=== PATIENT | female | born 1985 | race Caucasian/White ===

== ENCOUNTER 2020-04-16 16:22 | Emergency (ER) | payer OTHER, SELFPAY ==
--- NOTE | 2020-04-16 16:28 | ED.GENADULT ---
HPI - General Adult General Chief complaint: Urogenital-Female Stated complaint: frequent urination/tingle at end of urination Time Seen by Provider: 04/16/20 16:45 Source: patient Mode of arrival: ambulatory Limitations: no limitations History of Present Illness HPI narrative: 34-year-old female patient presents to the [facility] with complaints of urinary symptoms with pain with urination for the past 2 days. Denies any fevers, body aches or chills. Denies any low back pain. Patient states she has had some lower abdominal cramping but states she is supposed to be starting her menstrual cycle. Patient denies any nausea vomiting or diarrhea. Related Data Allergies Allergy/AdvReac Type Severity Reaction Status Date / Time Penicillins Allergy Unknown HIVES Verified 04/16/20 16:44 Review of Systems Review of Systems: Narrative: CONSTITUTIONAL: Denies fever, chills, or sweats. EYES: Denies visual changes, redness, or discharge. ENT: Denies rhinorrhea, congestion, sore throat, or otalgia. CARDIOVASCULAR: Denies chest pain, palpitations, or edema. RESPIRATORY: Denies cough or dyspnea. GASTROINTESTINAL: Denies abdominal pain, nausea, vomiting, or diarrhea. GENITOURINARY: Denies dysuria or hematuria. Positive pain with urination x2 days SKIN: Denies rash or itching. MUSCULOSKELETAL: Denies back pain, joint pain, or myalgia. NEUROLOGIC: Denies headache, numbness, or weakness. PSYCHIATRIC: Denies anxiety or depression. PMFSH Comments At the time of my signature I agree with nursing past medical history, surgical, social, and family history. There is no relevant family history pertinent to the presenting complaint. Exam Narrative: Exam Narrative: GENERAL: Well-appearing, well-nourished, and in no acute distress. HEAD: Normocephalic, atraumatic. EYES: PERRLA and EOMI. ENT: Nares clear, no rhinorrhea or epistaxis. Mucous membranes moist. NECK: Supple. No lymphadenopathy CHEST: Clear to auscultation. No respiratory distress. HEART: Regular rate and rhythm. No murmur heard. Normal peripheral pulses. ABDOMEN: Soft, nontender, nondistended, normal active bowel sounds. No CVA tenderness on percussion EXTREMITIES: Normal range of motion. No edema. SKIN: Warm, dry, no rash. NEURO: No focal deficits. Alert and oriented x3. Course Vital Signs Vital signs: Vital Signs Temperature 37.4 C 04/16/20 16:32 Pulse Rate 97 04/16/20 16:32 Respiratory Rate 18 04/16/20 16:32 Blood Pressure 132/86 04/16/20 16:32 Pulse Oximetry 98 04/16/20 16:32 Temperature 37.4 C 04/16/20 16:32 Pulse Rate 97 04/16/20 16:32 Respiratory Rate 18 04/16/20 16:32 Blood Pressure 132/86 04/16/20 16:32 Pulse Oximetry 98 04/16/20 16:32 Vital signs reviewed The patient has been informed that they may have pre-hypertension or Hypertension based on a BP reading in the department. I recommend that the patient call the primary care provider listed on their discharge instructions or a physician of their choice this week to arrange follow up for further evaluation of possible pre-hypertension or Hypertension Medical Decision Making Differential Diagnosis Differential Diagnosis: Differential diagnosis: Uncomplicated lower UTI, uncomplicated UTI, pyelonephritis Cussed with patient that she does have some leukocytes noted on her urine dip. Discussed with her that since she is having symptoms we will go ahead and start her on some antibiotics and send her urine off for a culture. Discussed with her that if her culture comes back needing a different type of antibiotics she will get a phone call from us. Discussed with her that if she does not hear anything just to continue taking the antibiotics until they have been completed. Patient verbalized understanding denies any other questions or concerns at this time. Vital Signs Vital Signs: Vital Signs Temperature 37.4 C 04/16/20 16:32 Pulse Rate 97 04/16/20 16:32 Respiratory Rate 18 04/03
[2020-04-16 16:32] VITALS: BP 132/86; PULSE 97; RESP 18; TEMP 37.4; O2SAT 98
== END 2020-04-16 16:51 | disposition home or self-care (01) ==
PROVIDERS: Emergency Provider Nurse Practitioner Family; PCP Physician Assistant
DX: N30.00 Acute cystitis without hematuria (principal)
CPT/HCPCS: 81003; 87077; 87086; 87088; 99213; G0463

== ENCOUNTER 2020-08-28 09:09 | Emergency (ER) | payer OTHER, SELFPAY ==
[2020-08-28 09:14] VITALS: BP 124/71; PULSE 81; RESP 16; TEMP 36.7; O2SAT 98
--- NOTE | 2020-08-28 09:19 | ED.FEMALEGU ---
HPI - Female Genitourinary General Chief complaint: Urogenital-Female Stated complaint: Poss UTI Time Seen by Provider: 08/28/20 09:19 Source: patient and RN notes reviewed Mode of arrival: ambulatory Limitations: no limitations History of Present Illness HPI Narrative: 35-year-old female presents to [facility] stating I think I have a UTI. Symptoms for 3 days. States that she is having the same symptoms with the umbilical abdominal discomfort 2 days ago. No pain currently. Has had urgency, no frequency but states that she feels like she is going less often. Denies nausea or vomiting or diarrhea. Has been taking Azo and states she has not had any discomfort with urination. States that she has a normal vaginal discharge. No CVA tenderness. Related Data Home Medications Medication Instructions Recorded Confirmed escitalopram oxalate [Lexapro] 20 mg PO DAILY 08/28/20 08/28/20 levonorgestrel [Mirena] 1 device INTRAUTERINE ONCE 08/28/20 08/28/20 Allergies Allergy/AdvReac Type Severity Reaction Status Date / Time Penicillins Allergy Unknown HIVES Verified 08/28/20 09:20 Review of Systems Review of Systems: Narrative: CONSTITUTIONAL: Denies fever, chills, or sweats. EYES: Denies visual changes, redness, or discharge. ENT: Denies rhinorrhea, congestion, sore throat, or otalgia. CARDIOVASCULAR: Denies chest pain, palpitations, or edema. RESPIRATORY: Denies cough or dyspnea. GASTROINTESTINAL: Denies abdominal pain, nausea, vomiting, or diarrhea. GENITOURINARY: Reports urgency and suprapubic discomfort SKIN: Denies rash or itching. MUSCULOSKELETAL: Denies back pain, joint pain, or myalgia. NEUROLOGIC: Denies headache, numbness, or weakness. PSYCHIATRIC: Denies anxiety or depression. All other systems reviewed are negative, except as documented in HPI. PMFSH Comments At the time of my signature, I reviewed and agree with the nursing past medical, surgical, social, and family history. There is no relevant family history pertinent to the patient complaint. Exam Narrative: Exam Narrative: GENERAL: This is a well-nourished, well-developed patient, in no apparent distress. HEAD: normocephalic, atraumatic. EYES: PERRL. Sclera clear/white. Vision is grossly intact. EARS: External ears normal. NECK: Neck supple, non-tender without lymphadenopathy, masses or thyromegaly. CARDIOVASCULAR: Regular rate and rhythm without murmurs, gallops, or rubs. RESPIRATORY: Clear to auscultation. Breath sounds equal bilaterally. No wheezes, rales, or rhonchi. GASTROINTESTINAL: Abdomen soft, non-tender, nondistended. SKIN: warm, intact with no suspicious lesions or rash, good texture and turgor. NEURO: awake, alert, and oriented to person, place and time. There were no obvious focal neurologic abnormalities. EXTREMITIES: No clubbing, cyanosis, or edema. No joint tenderness, effusion, or edema noted. No calf tenderness. Negative Homans sign bilaterally. BACK: Nontender without deformity. no CVA tenderness Course Vital Signs Vital signs: Vital Signs Temperature 98.1 F 08/28/20 09:14 Pulse Rate 81 08/28/20 09:14 Respiratory Rate 16 08/28/20 09:14 Blood Pressure 124/71 08/28/20 09:14 Pulse Oximetry 98 08/28/20 09:14 Temperature 98.1 F 08/28/20 09:14 Pulse Rate 81 08/28/20 09:14 Respiratory Rate 16 08/28/20 09:14 Blood Pressure 124/71 08/28/20 09:14 Pulse Oximetry 98 08/28/20 09:14 Reviewed, within defined limits MDM - Female Genitourinary MDM Narrative Medical decision making narrative: Plan of care and discharge instructions reviewed with patient, as well as provided in writing per nursing staff. The instructions also include specific and strict return/GO TO THE ER as well as f/u information. All questions have been answered, and the patient deny any further questions with discharge and discharge plan. Differential Diagnosis Differential diagnosis: Likely urinary tract infection, bacterial vaginosis and v
== END 2020-08-28 09:52 | disposition home or self-care (01) ==
PROVIDERS: Emergency Provider Nurse Practitioner; PCP Physician Assistant
DX: N30.01 Acute cystitis with hematuria (principal); F41.9 Anxiety disorder, unspecified
CPT/HCPCS: 81003; 87086; 99213; G0463

== ENCOUNTER 2023-08-12 15:28 | Emergency (ER) | payer OTHER, SELFPAY ==
[2023-08-12 15:36] VITALS: BP 105/55; PULSE 98; RESP 16; TEMP 37.2; O2SAT 98
[2023-08-12 15:38] VITALS: BP 105/55; PULSE 98; RESP 16; TEMP 37.2; O2SAT 98
--- NOTE | 2023-08-12 16:24 | ED.GENADULT ---
HPI - General Adult General Chief complaint: Dental/Oral Stated complaint: Sore Throat Source: patient Mode of arrival: ambulatory History of Present Illness HPI narrative: 38-year-old female presented for c/o sores in mouth for the past few days, on chemotherapy for breast cancer. Reports soreness to the tongue and top of mouth. States she had the sores the last round of chemo but the resolved on their own quickly. Denies sores or bleeding to the gums. Related Data Home Medications Medication Instructions Recorded Confirmed escitalopram oxalate 20 mg tablet 20 mg PO DAILY 08/28/20 08/28/20 (Lexapro) levonorgestrel 21 mcg/24 hours (8 1 device intrauterine ONCE 08/28/20 08/28/20 yrs) 52 mg intrauterine device (Mirena) famotidine 20 mg tablet mg 08/12/23 ondansetron HCl 8 mg tablet mg 08/12/23 prochlorperazine maleate 10 mg mg 08/12/23 tablet valacyclovir 1 gram tablet mg 08/12/23 Allergies Allergy/AdvReac Type Severity Reaction Status Date / Time Penicillins Allergy Unknown HIVES Verified 08/28/20 09:20 Review of Systems Review of Systems: CONSTITUTIONAL: Denies body aches, fever, chills ENT: Denies rhinorrhea, congestion, sore throat, or otalgia. Reports mouth pain CARDIOVASCULAR: Denies chest pain, palpitations RESPIRATORY: Denies cough or dyspnea. SKIN: Denies rash, itching, or wounds. MUSCULOSKELETAL: Denies myalgia. NEUROLOGIC: Denies headache, numbness, tingling, or weakness. [facility] Social History Social History (Updated 08/12/23 @ 16:36 by Monica Avelar, [employer]) Smoking status: Current every day smoker Tobacco type: cigarettes Comments At time of signature, I have reviewed and agree with nursing past medical, surgical, social and family history unless otherwise noted. Please see nursing chart for further information. There is no relevant family history pertinent to the presenting complaint Exam Narrative: GENERAL: well appearing, no acute distress. EYES: EOMI. No redness or drainage. Conjunctivae normal. ENT: Scattered raised round papules approx 3mm diameter to tongue and soft palate; gums normal. Mucous membranes pink and moist. TMs normal bilaterally. Throat normal. Uvula midline. NECK: Normal AROM. CHEST: No respiratory distress. Clear to auscultation. HEART: Regular rate and rhythm. No murmur appreciated. SKIN: Warm, dry, no rash. Normal skin turgor. NEURO: No focal deficits. Alert and oriented x3. Gait steady. Course Course Emergency Course: Patient is aware of diagnosis, understands and agrees to treatment plan. Anticipatory guidance given. Patient agrees to follow-up as directed and is aware of reasons to seek care at the emergency department. Portions of this record may have been created with voice recognition software Level of Care: Express Care Visit Vital Signs Vital signs: Vital Signs Temperature 99.0 F 08/12/23 15:36 Pulse Rate 98 08/12/23 15:36 Respiratory Rate 16 08/12/23 15:36 Blood Pressure 105/55 L 08/12/23 15:36 Pulse Oximetry 98 08/12/23 15:36 Oxygen Delivery Room Air 08/12/23 15:36 Temperature 99.0 F 08/12/23 15:38 Pulse Rate 98 08/12/23 15:38 Respiratory Rate 16 08/12/23 15:38 Blood Pressure 105/55 L 08/12/23 15:38 Pulse Oximetry 98 08/12/23 15:38 Oxygen Delivery Room Air 08/12/23 15:38 Medical Decision Making MDM Narrative Medical decision making narrative: Discussed physical exam findings c/w stomatitis 2/2 chemo. Advised supportive measures and signs/symptoms to go to the ER. Pt is appropriate for outpt treatment and f/u. Differential Diagnosis Differential Diagnosis: gingivostomatitis, aphthous ulcer, oral candidiasis, HSV, apthous ulcers, leukoplakia, oral thrush, vincent's angina, streptococcal pharyngitis, perioral dermatitis, cocksackie virus. Vital Signs Vital Signs: Vital Signs Temperature 99.0 F 08/12/23 15:36 Pulse Rate 98 08/12/23 15:36 Respira
== END 2023-08-12 16:37 | disposition home or self-care (01) ==
PROVIDERS: Emergency Provider Nurse Practitioner Family; PCP Physician Assistant
DX: K12.1 Other forms of stomatitis (principal); F17.210 Nicotine dependence, cigarettes, uncomplicated; C50.919 Malignant neoplasm of unspecified site of unspecified female breast; Z79.60 Long term (current) use of unspecified immunomodulators and immunosuppressants; F41.9 Anxiety disorder, unspecified
CPT/HCPCS: 99213; G0463